=== PATIENT | male | born 1965 | race Caucasian/White ===

== ENCOUNTER 2019-09-18 15:10 | Inpatient (IN) | payer MEDICAID, OTHER ==
[~2019-09-18] VITALS: Ht 185.4 cm; Wt 84.5 kg
[2019-09-18 16:34] LABS: BASOPHILS % (AUTO) 0.7 % (0.0-2.0); EOSINOPHILS % (AUTO) 0.9 % (1.0-6.0); HEMATOCRIT 42.1 % (41-53); HEMOGLOBIN 14.1 g/dL (13.5-17.5); LYMPHOCYTES % (AUTO) 30.8 % (22.0-44.0); MEAN CORPUSCULAR HEMOGLOBIN 31.3 pg (26.0-34.0); MEAN CORPUSCULAR HGB CONC 33.5 G/dL (31.0-37.0); MEAN CORPUSCULAR VOLUME 93 fL (80-100); MONOCYTES # (AUTO) 0.6 K/uL (0.1-1.0); MONOCYTES % (AUTO) 9.6 % (2.0-9.0); NEUTROPHILS # (AUTO) 3.9 K/uL (1.8-7.7); PLATELET COUNT (AUTO) 217 K/uL (150-450); RED BLOOD CELL COUNT(AUTO) 4.52 MIL/uL (4.50-5.90); RED CELL DISTRIBUTION WIDTH 14.9 % (11.5-14.5)
[2019-09-18 16:40] LABS: AMPHET/METH SCREEN,URINE POSITIVE (NEGATIVE); BARBITURATE SCREEN, URINE NEGATIVE (NEGATIVE); BENZODIAZEPINES SCREEN,URINE NEGATIVE (NEGATIVE); CANNABINOID SCREEN,URINE NEGATIVE (NEGATIVE); COCAINE SCREEN,URINE NEGATIVE (NEGATIVE); METHADONE SCREEN, URINE NEGATIVE (NEGATIVE); OPIATE SCREEN,URINE NEGATIVE (NEGATIVE)
[2019-09-18 16:43] LABS: ANION GAP 9 mmol/L (8-16); CALCIUM, TOTAL 8.3 mg/dL (8.8-10.5); CARBON DIOXIDE 26 mmol/L (22-29); CHLORIDE 107 mmol/L (98-107); CREATININE 0.82 mg/dL (0.60-1.30); GLOMERULAR FILTR. RATE CALC > 60 mL/min (>60); GLUCOSE,RANDOM 96 mg/dL (70-110); POTASSIUM 3.8 mmol/L (3.5-5.1); SODIUM SERUM 142 mmol/L (136-145); UREA NITROGEN, BLOOD 14 mg/dL (7-18)
[2019-09-18 16:51] LABS: ALANINE AMINOTRANSFERASE 26 U/L (12-78); ALBUMIN 3.5 g/dL (3.4-5.0); ALKALINE PHOSPHATASE 84 U/L (46-116); ASPARTATE AMINOTRANSFERASE 27 U/L (15-37); BILIRUBIN,TOTAL 0.2 mg/dL (0.1-1.0); TOTAL PROTEIN, SERUM 7.1 g/dL (6.4-8.2)
[2019-09-18 16:56] LABS: PHENCYCLIDINE SCREEN,URINE NEGATIVE (NEGATIVE)
[2019-09-18] MEDS ORDERED: LORazepam 2 MG TABLET PO PRN (19:30)
[2019-09-18] MEDS ORDERED: HALOPERIDOL 5 MG TABLET PO PRN (19:30)
[2019-09-18] MEDS ORDERED: ZOLPIDEM TARTRATE 10 MG TABLET PO PRN (19:30)
[2019-09-18 20:25] LABS: APPEARANCE,URINE CLOUDY (CLEAR); BILIRUBIN,URINE NEGATIVE (NEGATIVE); GLUCOSE, URINE (UA) NEGATIVE (NEGATIVE); KETONES,URINE TRACE mg/dL (NEGATIVE); LEUKOCYTE ESTERASE ,URINE SMALL (NEGATIVE); NITRATE,URINE POSITIVE (NEGATIVE); OCCULT BLOOD,URINE NEGATIVE (NEGATIVE); PH,URINE 5.5 (5.0-8.0); PROTEIN,URINE POS 1+ (NEGATIVE); UROBILINOGEN,URINE 0.2 mg/dL (<=1.0)
[2019-09-18 20:39] LABS: BACTERIA,URINE Many /HPF (None Seen)
[2019-09-18 20:40] LABS: RBC,URINE None Seen /HPF (0-2); SQUAMOUS EPITHELIAL CELL,UR Few /LPF (None Seen)
[2019-09-19 00:38] VITALS: BP 141/87
[2019-09-19] MEDS ORDERED: MAGNESIUM HYDROXIDE SUSPENSION 30 ML UDCUP PO PRN (08:30)
[2019-09-19] MEDS ORDERED: ACETAMINOPHEN 325 MG TABLET PO PRN (08:30)
[2019-09-19] MEDS ORDERED: PETROLATUM,WHITE 28 GM JELLY TP PRN (08:30)
[2019-09-19] MEDS ORDERED: DOCUSATE SODIUM 100 MG CAPSULE PO PRN (08:30)
[2019-09-19] MEDS ORDERED: GuaiFENesin/D-METHORPHAN [SUGAR-FREE] 200-20MG/10 ML SYRUP UDCUP PO PRN (08:30)
[2019-09-19] MEDS ORDERED: ALBUTEROL SULFATE HFA 90 MCG/PUFF 8 GM INHALER IH PRN (08:30)
[2019-09-19] MEDS ORDERED: ONDANSETRON HCL 4 MG TABLET PO PRN (08:30)
[2019-09-19] MEDS ORDERED: MAG HYDROX/AL HYDROX/SIMETH ES 30 ML SUSPENSION UDCUP PO PRN (08:30)
[2019-09-19] MEDS ORDERED: IBUPROFEN 400 MG TABLET PO PRN (08:30)
[2019-09-19] MEDS ORDERED: NICOTINE 14 MG/24 HOUR PATCH TD PRN (08:30)
[2019-09-19] MEDS ORDERED: LOPERAMIDE HCL 2 MG CAPSULE PO PRN (08:30)
[2019-09-19] MEDS ORDERED: CloNIDine HCL 0.1 MG TABLET PO PRN (08:30)
[2019-09-19 16:00] VITALS: BP 127/77
[2019-09-19] MEDS: CEPHALEXIN MONOHYDRATE 500 MG CAPSULE PO SCH (16:13)
[2019-09-19] MEDS: RisperiDONE 2 MG TABLET PO SCH (16:13)
[2019-09-20 08:54] VITALS: BP 120/81
[2019-09-20] MEDS: CEPHALEXIN MONOHYDRATE 500 MG CAPSULE PO SCH ×3 (09:35→16:47)
[2019-09-20] MEDS: RisperiDONE 2 MG TABLET PO SCH ×2 (09:35→16:47)
[2019-09-20 16:01] VITALS: BP 120/65
[2019-09-21] MEDS: RisperiDONE 2 MG TABLET PO SCH (08:33)
[2019-09-21] MEDS: CEPHALEXIN MONOHYDRATE 500 MG CAPSULE PO SCH ×2 (08:33→13:03)
[2019-09-21 09:03] VITALS: BP 110/64
[2019-09-21] MEDS ORDERED: RISP2TAB23 PO (12:53)
[2019-09-21] MEDS ORDERED: CEPH-582 PO (12:57)
== END 2019-09-21 14:30 | disposition home or self-care (01) | DRG 885 ==
LOC: EMS 15:10 → 3EI 19:29
PROVIDERS: ADMIT Psychiatry & Neurology Child & Adolescent Psychiatry; ATTEND Psychiatry & Neurology Child & Adolescent Psychiatry
DX: F25.1 Schizoaffective disorder, depressive type (principal); N39.0 Urinary tract infection, site not specified; R45.851 Suicidal ideations; F17.210 Nicotine dependence, cigarettes, uncomplicated; F32.9 Major depressive disorder, single episode, unspecified; F41.9 Anxiety disorder, unspecified; F10.10 Alcohol abuse, uncomplicated; F15.10 Other stimulant abuse, uncomplicated; Z71.51 Drug abuse counseling and surveillance of drug abuser; Z71.41 Alcohol abuse counseling and surveillance of alcoholic
CPT/HCPCS: 87086; G0480

== ENCOUNTER 2019-09-28 07:33 | Emergency (ER) | payer MEDICAID, OTHER ==
[~2019-09-28] VITALS: Ht 175.3 cm; Wt 81.8 kg
[~2019-09-28 07:33] MED LIST: CEPH-582 PO; RISP2TAB23 PO
[2019-09-28 08:53] LABS: BASOPHILS % (AUTO) 1.6 % (0.0-2.0); EOSINOPHILS % (AUTO) 0 % (1.0-6.0); HEMATOCRIT 42.5 % (41-53); LYMPHOCYTES # (AUTO) 1.3 K/uL (1.0-4.8); LYMPHOCYTES % (AUTO) 27.4 % (22.0-44.0); MEAN CORPUSCULAR HEMOGLOBIN 30.8 pg (26.0-34.0); MEAN CORPUSCULAR VOLUME 94 fL (80-100); MONOCYTES # (AUTO) 0.6 K/uL (0.1-1.0); MONOCYTES % (AUTO) 13.3 % (2.0-9.0); NEUTROPHILS # (AUTO) 2.6 K/uL (1.8-7.7); NEUTROPHILS % (AUTO) 57.7 % (40.0-70.0); PLATELET COUNT (AUTO) 219 K/uL (150-450); RED BLOOD CELL COUNT(AUTO) 4.54 MIL/uL (4.50-5.90); RED CELL DISTRIBUTION WIDTH 14.5 % (11.5-14.5)
[2019-09-28 09:05] LABS: ANION GAP 11 mmol/L (8-16); CALCIUM, TOTAL 7.9 mg/dL (8.8-10.5); CARBON DIOXIDE 25 mmol/L (22-29); CHLORIDE 107 mmol/L (98-107); CREATININE 0.72 mg/dL (0.60-1.30); GLOMERULAR FILTR. RATE CALC > 60 mL/min (>60); GLUCOSE,RANDOM 92 mg/dL (70-110); POTASSIUM 3.7 mmol/L (3.5-5.1); SODIUM SERUM 143 mmol/L (136-145); UREA NITROGEN, BLOOD 11 mg/dL (7-18)
[2019-09-28 09:10] LABS: ALANINE AMINOTRANSFERASE 18 U/L (12-78); ALBUMIN 3.5 g/dL (3.4-5.0); ALKALINE PHOSPHATASE 76 U/L (46-116); ASPARTATE AMINOTRANSFERASE 17 U/L (15-37); BILIRUBIN,TOTAL 0.1 mg/dL (0.1-1.0); TOTAL PROTEIN, SERUM 7.1 g/dL (6.4-8.2)
[2019-09-28] MEDS ORDERED: HALOPERIDOL 5 MG TABLET PO ONE (10:45)
[2019-09-28 10:50] VITALS: BP 133/84
== END 2019-09-28 10:50 | disposition home or self-care (01) ==
LOC: EMS 07:34
DX: F25.9 Schizoaffective disorder, unspecified (principal); F41.9 Anxiety disorder, unspecified; F32.9 Major depressive disorder, single episode, unspecified; F17.210 Nicotine dependence, cigarettes, uncomplicated
CPT/HCPCS: 80053; 85025; 99284; G0480

== ENCOUNTER 2020-08-12 18:35 | Inpatient (IN) | payer MEDICAID ==
[~2020-08-12] VITALS: Ht 185.4 cm; Wt 87.1 kg
[~2020-08-12 18:35] MED LIST changes: -RISP2TAB23 PO; +RISP2TAB45 PO
[2020-08-12] MEDS ORDERED: HALOPERIDOL 5 MG TABLET PO PRN (22:45)
[2020-08-12] MEDS ORDERED: LORazepam 2 MG TABLET PO PRN (22:45)
[2020-08-12] MEDS ORDERED: ZOLPIDEM TARTRATE 10 MG TABLET PO PRN (22:45)
[2020-08-13 00:55] VITALS: BP 124/82
[2020-08-13] MEDS ORDERED: BENZOCAINE/MENTHOL LOZENGE PO PRN (11:30)
[2020-08-13] MEDS ORDERED: BACITRACIN 28 GM OINTMENT TP PRN (11:30)
[2020-08-13] MEDS ORDERED: DOCUSATE SODIUM 100 MG CAPSULE PO PRN (11:30)
[2020-08-13] MEDS ORDERED: MAG HYDROX/AL HYDROX/SIMETH ES 30 ML SUSPENSION UDCUP PO PRN (11:30)
[2020-08-13] MEDS ORDERED: CloNIDine HCL 0.1 MG TABLET PO PRN (11:30)
[2020-08-13] MEDS ORDERED: LOPERAMIDE HCL 2 MG CAPSULE PO PRN (11:30)
[2020-08-13] MEDS ORDERED: ALBUTEROL SULFATE HFA 90 MCG/PUFF 8 GM INHALER IH PRN (11:30)
[2020-08-13] MEDS ORDERED: OMEPRAZOLE 20 MG CAPSULE PO PRN (11:30)
[2020-08-13] MEDS ORDERED: ACETAMINOPHEN 325 MG TABLET PO PRN (11:30)
[2020-08-13] MEDS ORDERED: ONDANSETRON HCL 4 MG TABLET PO PRN (11:30)
[2020-08-13] MEDS ORDERED: PETROLATUM,WHITE 28 GM JELLY TP PRN (11:30)
[2020-08-13] MEDS ORDERED: IBUPROFEN 600 MG TABLET PO PRN (11:30)
[2020-08-13] MEDS ORDERED: MAGNESIUM HYDROXIDE SUSPENSION 30 ML UDCUP PO PRN (11:30)
[2020-08-13 16:14] VITALS: BP 139/86
[2020-08-13] MEDS: RisperiDONE 2 MG TABLET PO SCH (17:00)
[2020-08-14 05:30] VITALS: BP 123/78
[2020-08-14] MEDS: RisperiDONE 2 MG TABLET PO SCH (08:49)
[2020-08-14 09:06] VITALS: BP 109/64
[2020-08-14] MEDS ORDERED: OLAN10TA74 PO (11:23)
[2020-08-14] MEDS ORDERED: OLANZapine 10 MG TABLET PO SCH (21:00)
== END 2020-08-14 12:13 | disposition home or self-care (01) | DRG 750 ==
LOC: B3A 22:36
PROVIDERS: ADMIT Psychiatry & Neurology Psychiatry; ATTEND Psychiatry & Neurology Psychiatry
DX: F25.9 Schizoaffective disorder, unspecified (principal); F10.10 Alcohol abuse, uncomplicated; F17.200 Nicotine dependence, unspecified, uncomplicated; F41.9 Anxiety disorder, unspecified; F15.10 Other stimulant abuse, uncomplicated; G47.00 Insomnia, unspecified
CPT/HCPCS: Z7610